=== PATIENT | male | born 1945 | race Caucasian/White ===

== ENCOUNTER → 2016-08-28 | Outpatient (CLI) | payer OTHER, BC ==
--- NOTE | 2016-08-28 13:30 | US ---
Ultrasound of the Abdomen Limited History: Right Abdominal pain. Comparison: None. Findings: Gallbladder: Several Shadowing calculi in the gallbladder measuring up to 4.4 x 2.6 cm in the region of the gallbladder neck. No gallbladder Wall thickening, or pericholecystic fluid. Common bile duct i s 2 mm in diameter which is normal. Liver: Homogeneous in echogenicity and measures 19 cm in length. Limited evaluation of the left lobe liver. Renal: Right kidney measures 10 x 5 x 8 cm without hydronephrosis. Pancreas: Obscured by bowel gas. Aorta: Visualized upper abdominal aorta demonstrates no aneurysm. The appendix is not visualized. Impression: 1. Cholelithiasis with multiple gallstones up to 4.4 cm. 2. No gallbladder wall thickening or pericholecystic fluid. 3. Hepatomegaly. 4. Appendix not identified.
== END ==
LOC: BRMIMAGING 10:58
PROVIDERS: ATTEND Internal Medicine
DX: K80.20 Calculus of gallbladder without cholecystitis without obstruction (principal); R16.0 Hepatomegaly, not elsewhere classified
CPT/HCPCS: 76705-PO

== ENCOUNTER 2016-09-26 07:45 | Day surgery (SDC) | payer OTHER, BC ==
[~2016-09-26 07:45] MED LIST: BUPIVACAINE 0.5% 30 ML SDV ONE; HEPARIN 10,000 UNIT/10 ML MDV ONE; cefOXitin SODIUM 1 GM in D5W 50 ML IV ONE
[2016-09-26] MEDS ORDERED: LIDOCAINE 1% 5 ML SDV ID PRN (07:57)
[2016-09-26] MEDS ORDERED: LR 1,000 ML IV ONE (07:57)
[2016-09-26] MEDS ORDERED: CEFAZOLIN 2 GM/DEXTROSE/100 ML BAG IV ONE (07:58)
[2016-09-26] MEDS ORDERED: LIDOCAINE 1% 5 ML SDV ONE (07:58)
[2016-09-26] MEDS ORDERED: DEXAMETHASONE 4 MG/ML VIAL ONE (08:13)
[2016-09-26] MEDS ORDERED: PROPOFOL/EMULSION 500 MG/50 ML BOTTLE IV ONE (08:13)
[2016-09-26] MEDS ORDERED: ROCURONIUM 50 MG/5 ML VIAL ONE (08:13)
[2016-09-26] MEDS ORDERED: fentaNYL 100 MCG/2 ML INJ ONE ×2 (08:13→09:26)
[2016-09-26 08:30] LABS: ALBUMIN 4.3 g/dL (3.5-5.0); BILIRUBIN,TOTAL 1.4 mg/dL (0.1-1.4); BILIRUBIN-CONJUGATED 0.2 mg/dL (0.0-0.5); BILIRUBIN-UNCONJUGATED 1.2 mg/dL (0.0-1.1)
[2016-09-26] MEDS ORDERED: epHEDrine SULFATE 10 MG/ML SYR ONE ×2 (08:52→08:57)
[2016-09-26] MEDS ORDERED: ONDANSETRON 4 MG/2 ML VIAL ONE (09:09)
[2016-09-26] MEDS ORDERED: KETOROLAC 30 MG/1 ML SDV ONE (09:09)
[2016-09-26] MEDS ORDERED: SUGAMMADEX SODIUM 200 MG/2 ML VIAL IVP ONE (09:11)
[2016-09-26] MEDS ORDERED: ceFAZolin 2 GM/DEXTROSE 100 ML IV ONE (10:00)
[2016-09-26] MEDS ORDERED: HYDROCODONE/APAP 5/325 TAB ONE (10:34)
== END 2016-09-26 11:20 | disposition home or self-care (01) ==
LOC: FSGY 07:45
PROVIDERS: ATTEND Surgery
PROC: 0FT44ZZ Resection of Gallbladder, Percutaneous Endoscopic Approach (ICD-10-PCS; principal; 2016-09-26 09:30)
DX: K80.10 Calculus of gallbladder with chronic cholecystitis without obstruction (principal)
CPT/HCPCS: J0690; J0697; J1100; J1644; J1885; J2405; J2704; J3010